=== PATIENT | female | born 1970 | race Caucasian/White ===

== ENCOUNTER → 2016-04-29 | Outpatient (CLI) | payer OTHER ==
[~2016-04-29] MED LIST: BCPILLS PO; CALC625T13 PO; CITA10TA4 PO; CYCL10TA6 PO; DICY10CA55 PO; LORA-741 PO; PROB1TAB16 PO; TRAM-10 PO
--- NOTE | 2016-04-29 16:49 | DIAGNOSTIC IMAGING REPORT ---
SINUSES MIN 3 VIEWS ROUTINE CLINICAL HISTORY: 478.19, R09.81 cough. Congestion. COMPARISON STUDY: None FINDINGS: All major sinuses are clear. There is no significant mucosal thickening. There are no air-fluid levels. There is no evidence for bony destructive process. Orbital margins are unremarkable. Mastoid air cells are clear. IMPRESSION: Normal study Electronically signed by: Rigoberto Prakash M.D. 04/29/2016 4:47 PM
== END | disposition home or self-care (01) ==
LOC: C.RAD1850 16:24
PROVIDERS: ATTEND Internal Medicine
DX: R09.81 Nasal congestion (principal)

== ENCOUNTER → 2016-06-12 | Outpatient (CLI) | payer OTHER ==
--- NOTE | 2016-06-12 14:38 | DIAGNOSTIC IMAGING REPORT ---
LEFT KNEE 4 VIEWS CLINICAL HISTORY: Posterior knee pain. FINDINGS: AP, crosstable lateral, tunnel, and sunrise views of the left knee are obtained. No prior studies are available for comparison at the time of dictation. The skeletal structures are well mineralized. No fracture is seen. The joint spaces of the knee are well-maintained. There is no evidence of osteochondral defect on the tunnel image. The overlying soft tissues are within normal limits. No joint effusion is identified. IMPRESSION: Unremarkable radiographic assessment of the left knee. Electronically signed by: Demetri Bay M.D. 06/12/2016 2:36 PM Dictated Date/Time: 06/12/2016 2:35 PM
== END | disposition home or self-care (01) ==
LOC: C.RAD1850 14:05
PROVIDERS: ATTEND Internal Medicine
DX: M25.562 Pain in left knee (principal)

== ENCOUNTER → 2016-07-14 | Outpatient (CLI) | payer OTHER ==
[2016-07-14 14:58] LABS: BASO % 0.6 %; BASO ABS # 0.05 K/uL (0-0.2); COMPLETE YES; EOS % 1.8 %; HEMATOCRIT 39.7 % (37-47); IG% 0.1 %; LYMPH % 32.9 %; LYMPH ABS # 2.55 K/uL (1.2-3.4); MEAN CELL VOLUME 89.4 fL (80-100); MEAN CORPUSCULAR HEMOGLOBIN 29.3 pg (25-34); MEAN CORPUSCULAR HGB CONC 32.7 g/dl (32-36); MEAN PLATELET VOLUME 11.2 fL (7.4-10.4); MONO % 6.5 %; NEUT % 58.1 %; PLATELET COUNT 349 K/uL (130-400); RED BLOOD COUNT 4.44 M/uL (4.2-5.4); WHITE BLOOD COUNT 7.75 K/uL (4.8-10.8)
[2016-07-14 15:12] LABS: C-REACTIVE PROTEIN 0.94 mg/dl (0-0.29); RHEUMATOID FACTOR < 10.0 U/mL (0-15); THYROID STIMULATING HORMONE 0.431 uIu/ml (0.300-4.500)
[2016-07-17 20:21] LABS: CYCLIC CITRULLINATED PEPT IGG <16 UNITS (<20); HLA-B27** TC 528X NEGATIVE (NEGATIVE)
== END | disposition home or self-care (01) ==
LOC: C.LABBC 09:32
PROVIDERS: ATTEND Internal Medicine
DX: M25.562 Pain in left knee (principal)

== ENCOUNTER → 2016-09-11 | Outpatient (CLI) | payer OTHER ==
[2016-09-15 02:41] LABS: ANTI-CENTROMERE AB <1.0 NEG AI (<1.0 NEG); ANTI-SS-A <1.0 NEG AI (<1.0 NEG); ANTI-SS-B <1.0 NEG AI (<1.0 NEG); DNA ds CRITHIDIA NEGATIVE (NEGATIVE); MICROSOMAL AB <1 IU/ML (<9); Sm Antibody <1.0 NEG AI (<1.0 NEG)
== END | disposition home or self-care (01) ==
LOC: C.LAB1850 08:38
PROVIDERS: ATTEND Internal Medicine Rheumatology
DX: M25.562 Pain in left knee (principal); R76.8 Other specified abnormal immunological findings in serum

== ENCOUNTER → 2016-11-18 | Outpatient (CLI) | payer OTHER ==
[~2016-11-18] MED LIST changes: -CITA10TA4 PO
== END | disposition home or self-care (01) ==
LOC: C.LAB1850 09:27
PROVIDERS: ATTEND Internal Medicine Pulmonary Disease
DX: T78.1XXA Other adverse food reactions, not elsewhere classified, initial encounter (principal); X58.XXXA Exposure to other specified factors, initial encounter

== ENCOUNTER → 2016-11-19 | Day surgery (SDC) | payer OTHER ==
[2016-11-07 09:57] VITALS: Ht 162.6 cm; Wt 65.5 kg
[~2016-11-19] VITALS: Ht 162.6 cm; Wt 65.5 kg
[~2016-11-19] MED LIST changes: +FENTANYL CITRATE INJ 50 MCG/1 ML 2 ML VIAL ONE; +LIDOCAINE HCL 2% 2 ML VIAL (20MG/ML) ONE; +MIDAZOLAM HCL 1 MG/ML 2ML VIAL ONE; +PROPOFOL IV EMULSION 10 MG/ML 20 ML VIAL IV ONE
--- NOTE | 2016-11-19 12:01 | Endo History and Physical ---
History & Physical Date of Service: Nov 19, 2016. Chief Complaint: epigastric pain and heartburn Referring Physician: Dr. Adam Ramirez History of Present Illness 46 yo female who presents for EGD secondary to epigastric pain and heartburn. Past Medical History Other Past Surgical History Hx Cardiac Surgery: No Hx Internal Defibrillator: No Hx Pacemaker: No Hx Abdominal Surgery: Yes (TUBAL LIGATION, ENDOMETRIAL ABLATION, UMBILICAL HERNIA REPAIR) Hx of Implantable Prosthesis: No Hx Post-Op Nausea and Vomiting: No Hx Cancer Surgery: No Hx Thoracic Surgery: No Hx Orthopedic: Yes (RT ARM BONE CYST REMOVAL X2) Hx Urinary Tract Surgery: No Family History None Social History Smoking Status: Never Smoker Hx Substance Use: No Hx Alcohol Use: No Allergies Coded Allergies: Sulfa Drugs (Verified Allergy, Mild, hives, 11/07/16) Current Medications Reported Home Medications Medications Dose Route/Sig Max Daily Dose Days Date Category Fiber Tabs (Calcium Polycarbophil) 625 Mg Tab 1 Tab PO QAM 11/07/16 Reported Probiotic (Probiotic Product) 1 Tab Tab 1 Tab PO QAM 11/07/16 Reported Ultram (Tramadol HCl) 50 Mg Tab 50 Mg PO Q4H PRN 11/07/16 Reported Bentyl (Dicyclomine Hcl) 10 Mg Cap 10 Mg PO TIDM PRN 11/07/16 Reported Ativan (Lorazepam) 0.5 Mg Tab 0.5 Mg PO TID PRN 11/07/16 Reported Control Pills (Miscellaneous) Tab 1 Tab PO QAM 01/15/16 Reported Flexeril (Cyclobenzaprine Hcl) 10 Mg Tab 10 Mg PO HS PRN 01/03/15 Reported Vital Signs Weight (Kilograms): 65.45 Height (Feet): 5 Height (Inches): 4 Date Time Temp Pulse Resp B/P (MAP) Pulse Ox O2 Delivery O2 Flow Rate FiO2 11/19/16 11:48 36.6 82 16 129/84 (99) 98 Room Air Physical Exam General Appearance: WD/WN, no apparent distress Respiratory/Chest: Auscultation: breath sounds normal Cardiovascular: Heart Auscultation: RRR Abdomen: Bowel Sounds: normal Inspection & Palpation: soft, non-distended, no tenderness, guarding & rebound Assessment and Plan Assessment: 46 yo female who presents for EGD secondary to epigastric pain and heartburn. Plan: Proceed with EGD.
--- NOTE | 2016-11-19 12:09 | Discharge Instructions ---
Endoscopy Patient Instructions Date / Procedure(s) Performed Nov 19, 2016. EGD Allergy Information Coded Allergies: Sulfa Drugs (Verified Allergy, Mild, hives, 11/07/16) Discharge Date / Findings Nov 19, 2016. Gastric antrum biopsies Medication Instructions OK to resume all medications today as prescribed Reported Home Medications Medications Dose Route/Sig Max Daily Dose Days Date Category Fiber Tabs (Calcium Polycarbophil) 625 Mg Tab 1 Tab PO QAM 11/07/16 Reported Probiotic (Probiotic Product) 1 Tab Tab 1 Tab PO QAM 11/07/16 Reported Ultram (Tramadol HCl) 50 Mg Tab 50 Mg PO Q4H PRN 11/07/16 Reported Bentyl (Dicyclomine Hcl) 10 Mg Cap 10 Mg PO TIDM PRN 11/07/16 Reported Ativan (Lorazepam) 0.5 Mg Tab 0.5 Mg PO TID PRN 11/07/16 Reported Control Pills (Miscellaneous) Tab 1 Tab PO QAM 01/15/16 Reported Flexeril (Cyclobenzaprine Hcl) 10 Mg Tab 10 Mg PO HS PRN 01/03/15 Reported Provider Instructions Activity Restrictions - No exercising or heavy lifting for 24 hours. - Do not drink alcohol the day of the procedure. - Do not drive a car or operate machinery until the day after the procedure. - Do not make any important decisions or sign important papers in 24 hours after the procedure. Following Day: - Return to full activity which may include returning to work/school. Diet Start your diet with liquids and light foods (jello, soup, juice, toast). Then eat your usual diet if not nauseated. Treatment For Common After Affects For mild abdominal pain, bloating, or excessive gas: - Rest - Eat lightly - Lie on right side Follow-Up Information Follow-up with Dr. Adam Ramirez as scheduled Anesthesia Information What You Should Know You have had a procedure that required some medicine to reduce anxiety and discomfort. This treatment is called moderate sedation. After receiving the treatment, you may be sleepy, but you will be able to breathe on your own. The effects of the treatment may last for several hours. Follow these instructions along with Activity/Diet recommendations noted above: * Do NOT do anything where dizziness or clumsiness would be dangerous. * Rest quietly at home today, then you can be up and about tomorrow. * Have a responsible person stay with you the rest of today. * You may have had an I.V. today. If so, you may take the dressing off later today. Recommendations Call your doctor if: * Trouble breathing * Continuous vomiting for more than 24 hours * Temperature above 101 degrees * Severe abdominal pain or bloating * Pain not relieved by pain medicine ordered * There is increased drainage or redness from any incision * A large amount of rectal bleeding greater than 2-3 tablespoons. (If you had a polyp/s removed or have hemorrhoids, a small amount of blood - from the rectum is to be expected.) * You have any unanswered questions or concerns. IN THE EVENT OF A SERIOUS EMERGENCY, GO TO THE NEAREST EMERGENCY ROOM Your discharge instructions were prepared by provider Bob Baugh. Patient Instructions Signature Page Beth Treviño Patient (or Guardian) Signature/Date: I have read and understand the instructions given to me by my caregivers. Caregiver/RN/Doctor Signature/Date: The above-named patient and/or guardian has received patient instructions on this date. + Original Patient Signature Page (only) stays with chart. Please make copy for patient.
--- NOTE | 2016-11-19 12:15 | GI REPORT ---
Procedure Date: 11/19/2016 12:00 PM Procedure: Upper GI endoscopy Indications: Epigastric abdominal pain, Heartburn Medicines: Monitored Anesthesia Care Complications: No immediate complications. Estimated Blood Loss: Estimated blood loss: none. Procedure: Pre-Anesthesia Assessment: - Prior to the procedure, a History and Physical was performed, and patient medications and allergies were reviewed. The patient's tolerance of previous anesthesia was also reviewed. The risks and benefits of the procedure and the sedation options and risks were discussed with the patient. All questions were answered, and informed consent was obtained. Prior Anticoagulants: The patient has taken no previous anticoagulant or antiplatelet agents. ASA Grade Assessment: II - A patient with mild systemic disease. After reviewing the risks and benefits, the patient was deemed in satisfactory condition to undergo the procedure. After obtaining informed consent, the endoscope was passed under direct vision. Throughout the procedure, the patient's blood pressure, pulse, and oxygen saturations were monitored continuously. The scope was introduced through the mouth, and advanced to the second part of duodenum. The upper GI endoscopy was accomplished without difficulty. The patient tolerated the procedure well. Findings: The examined esophagus was normal. The entire examined stomach was normal. Biopsies were taken with a cold forceps for Helicobacter pylori testing. The examined duodenum was normal. Impression: - Normal esophagus. - Normal stomach. Biopsied. - Normal examined duodenum. Recommendation: - Resume previous diet. - Continue present medications. - Await pathology results. - Return to primary care physician as previously scheduled. Bob Baugh, 11/19/2016 12:14:51 PM This report has been signed electronically. Note Initiated On: 11/19/2016 12:00 PM I attest to the content of the Intraoperative Record and orders documented therein, exceptions below
[2016-11-19 12:26] VITALS: BP 113/80; PULSE 66; O2SAT 98
--- NOTE | 2016-11-19 12:37 | Anesthesiology Progress Note ---
Anesthesia Post Op Note Date & Time Nov 19, 2016 at 12:37 Vital Signs Pain Intensity: 0 Vital Signs Past 12 Hours Date Time Temp Pulse Resp B/P (MAP) Pulse Ox O2 Delivery O2 Flow Rate FiO2 11/19/16 12:26 66 16 113/80 (91) 98 Room Air 11/19/16 12:11 78 16 106/66 (79) 95 Room Air 11/19/16 11:48 36.6 82 16 129/84 (99) 98 Room Air Notes Mental Status: alert / awake / arousable, participated in evaluation Pt Amnestic to Procedure: Yes Nausea / Vomiting: adequately controlled Pain: adequately controlled Airway Patency, RR, SpO2: stable & adequate BP & HR: stable & adequate Hydration State: stable & adequate Anesthetic Complications: no major complications apparent
== END | disposition home or self-care (01) ==
LOC: C.GI 11:27
PROVIDERS: ATTEND Internal Medicine
DX: R10.13 Epigastric pain (principal); R12 Heartburn; K29.70 Gastritis, unspecified, without bleeding; Z98.51 Tubal ligation status; Z79.3 Long term (current) use of hormonal contraceptives; K21.9 Gastro-esophageal reflux disease without esophagitis; F41.9 Anxiety disorder, unspecified; F32.9 Major depressive disorder, single episode, unspecified; M54.5 Low back pain

== ENCOUNTER → 2017-02-23 | Day surgery (SDC) | payer OTHER ==
[~2017-02-23] VITALS: Ht 162.6 cm; Wt 64.0 kg
[~2017-02-23] MED LIST changes: -FENTANYL CITRATE INJ 50 MCG/1 ML 2 ML VIAL ONE; -LIDOCAINE HCL 2% 2 ML VIAL (20MG/ML) ONE; -MIDAZOLAM HCL 1 MG/ML 2ML VIAL ONE; -PROPOFOL IV EMULSION 10 MG/ML 20 ML VIAL IV ONE
[2017-02-23 08:35] VITALS: BP 124/79; PULSE 89; TEMP 36.8; O2SAT 99; Ht 162.6 cm; Wt 64.0 kg
[2017-02-23 11:59] VITALS: BP 120/79; PULSE 78; TEMP 36.9
== END | disposition home or self-care (01) ==
LOC: C.MTU 08:24
PROVIDERS: ATTEND Internal Medicine
DX: R14.0 Abdominal distension (gaseous) (principal); Z53.9 Procedure and treatment not carried out, unspecified reason